=== PATIENT | male | born 1950 | race Caucasian/White ===

== ENCOUNTER → 2024-08-25 12:28 | Outpatient (REF) | payer MEDICARE, OTHER, SELFPAY ==
--- NOTE | 2024-08-25 14:01 | CARDSERVLU ---
Echocardiogram with Lumason completed after protocol screening completed. Allergies verified.
Patent IV site: _Rt AC____
IV site flushed with 0.9% NaCl pre and post administration.
Diluted bolus method utilized to enhance visualization of ventricular campos.
Total volume given: __3.0mL
Patient tolerated all procedures well without complications.
#22 matty placed Rt AC. Lumason given. INT d/c'd. dsg applied. no bleeding noted.
== END ==
LOC: RCS 12:28
PROVIDERS: ATTENDING PHYSICIAN Internal Medicine Cardiovascular Disease
DX: Z95.2 Presence of prosthetic heart valve (principal)
CPT/HCPCS: 93306; Q9950